=== PATIENT | male | born 1990 | race Caucasian/White ===

== ENCOUNTER 2016-05-08 16:54 | Emergency (ER) | payer BC, OTHER ==
[~2016-05-08] VITALS: Ht 167.6 cm; Wt 65.3 kg
[2016-05-08 17:06] VITALS: BP_SYST 125
[2016-05-08] MEDS ORDERED: NACL 0.9% 1,000 ML IV ONE (17:45)
[2016-05-08] MEDS ORDERED: KETOROLAC TROMETHAMINE 30 MG VIAL IVP ONE (17:45)
[2016-05-08 19:20] VITALS: BP_SYST 125
== END 2016-05-08 19:20 | disposition home or self-care (01) ==
LOC: SED 16:54
DX: J06.9 Acute upper respiratory infection, unspecified (principal); E11.9 Type 2 diabetes mellitus without complications
CPT/HCPCS: 36415; 71020; 86710; 96361; 96374; 99284; J1885; J7030